=== PATIENT | female | born 1945 ===

== ENCOUNTER 2025-01-29 05:03 | Day surgery (SDC) | payer OTHER ==
[~2025-01-29 05:03] MED LIST: AMLODIPINE-OLM1 EACH; ASA81 MG PO; ATORVASTATIN CA40 MG PO; GLIMEPIRIDE2 MG; IRBESARTAN75 MG PO; NEURONTIN300 MG PO; PEPCID AC20 MG PO; PROAIR RESPICL90 MCG IH; SINGULAIR10 MG PO; SYMBICORT 80/10.2 GM IH; TRIJARDY XR 101 EACH PO
[2025-01-29] MEDS ORDERED: HEMOSTATIC MATRIX 1 KIT KIT TOP ONE (06:52)
[2025-01-29] MEDS ORDERED: BUPIVACAINE HCL/Mpf 0.5% 10ML VIAL ONE (06:52)
[2025-01-29] MEDS ORDERED: DIBUCAINE 30 GM TUBE ONE (06:52)
[2025-01-29] MEDS ORDERED: POVIDONE-IODINE 118 ML BOTT TOP ONE (06:52)
[2025-01-29] MEDS ORDERED: LIDOCAINE HCL 1%/EPINEPHRINE 20ML VIAL IJ ONE (06:52)
[2025-01-29] MEDS ORDERED: METRONIDAZOLE/SODIUM CHLORIDE 500 MG/100 ML PIGGYBACK IV ONE (06:53)
[2025-01-29] MEDS ORDERED: CEFTRIAXONE SODIUM 2,000 MG VIAL ONE (06:53)
[2025-01-29] MEDS ORDERED: TRAM1TAB98 PO (07:38)
[2025-01-29] MEDS ORDERED: RECTICARE30 GM TOP (07:38)
[2025-01-29] MEDS ORDERED: ACETAMINOPHEN-1 EAC2 PO (09:03)
== END 2025-01-29 12:55 | disposition home or self-care (01) ==
LOC: CIR.AMB 05:03
PROVIDERS: ATTEND Surgery
DX: D12.8 Benign neoplasm of rectum (principal)